=== PATIENT | female | born 1980 | race Two or more races ===

== ENCOUNTER 2022-05-10 15:27 | Emergency (ER) | payer MEDICAID, OTHER ==
[~2022-05-10] VITALS: Ht 157.5 cm; Wt 75.2 kg
[2022-05-10 16:40] VITALS: BP 142/85
[2022-05-10] MEDS ORDERED: CEPH-510 PO (17:18)
== END 2022-05-10 17:22 | disposition home or self-care (01) ==
LOC: ER 15:27
DX: S61.011A Laceration without foreign body of right thumb without damage to nail, initial encounter (principal); Z88.0 Allergy status to penicillin; W45.8XXA Other foreign body or object entering through skin, initial encounter; Y93.G3 Activity, cooking and baking; Y92.090 Kitchen in other non-institutional residence as the place of occurrence of the external cause; Y99.8 Other external cause status
CPT/HCPCS: 12002

== ENCOUNTER 2022-05-23 11:00 | Emergency (ER) | payer MEDICAID ==
[~2022-05-23] VITALS: Ht 157.5 cm; Wt 75.5 kg
[~2022-05-23 11:00] MED LIST: CEPH-510 PO
[2022-05-23 11:19] VITALS: BP 114/76
== END 2022-05-23 15:25 | disposition home or self-care (01) ==
LOC: ER 11:00
DX: S61.011D Laceration without foreign body of right thumb without damage to nail, subsequent encounter (principal); Z88.0 Allergy status to penicillin; X58.XXXD Exposure to other specified factors, subsequent encounter